=== PATIENT | female | born 1950 | race Caucasian/White ===

== ENCOUNTER → 2018-07-24 | Emergency (ER) | payer OTHER ==
[~2018-07-24] VITALS: Ht 162.6 cm; Wt 97.5 kg
[~2018-07-24] MED LIST: HYZAAR 100/25 T1 TAB; METFORMIN HCL500 MG; SYNTHROID50 MCG
== END | disposition home or self-care (01) ==
LOC: ER 05:02
DX: R06.02 Shortness of breath (principal); R05 Cough